=== PATIENT | female | born 1975 | race Caucasian/White ===

== ENCOUNTER 2019-10-31 05:55 | Inpatient (IN) | payer OTHER ==
[~2019-10-31] VITALS: Ht 167.6 cm; Wt 104.3 kg
--- NOTE | 2019-10-31 08:42 | NUR ---
a female 44 years old female admitted to room 118-2 from [facility] left message to for adm orders waiting for returning call back
[2019-10-31] MEDS ORDERED: ASPIRIN 81 MG TAB.CHEW PO SCH (10:00)
[2019-10-31] MEDS ORDERED: PANTOPRAZOLE 40 MG TABLET.DR PO SCH (10:00)
[2019-10-31 10:50] LABS: BASOPHILS # (AUTO) 0.1 /CMM (0.0-0.2); BASOPHILS % (AUTO) 0.7 % (0.0-2.0); EOSINOPHILS % (AUTO) 0.2 % (0.0-6.0); HEMATOCRIT 37 % (33-45); HEMOGLOBIN 12.2 g/dL (11.5-14.8); LYMPHOCYTES # (AUTO) 1.5 /CMM (0.8-4.8); LYMPHOCYTES % (AUTO) 17.1 % (20.0-44.0); MEAN CORPUSCULAR HGB CONC 33 g/dl (31.0-36.0); MEAN CORPUSCULAR VOLUME 84 fL (82-100); MONOCYTES # (AUTO) 0.4 /CMM (0.1-1.30); MONOCYTES % (AUTO) 4.3 % (2.0-12.0); NEUTROPHILS # (AUTO) 6.6 /CMM (1.8-8.9); NEUTROPHILS % (AUTO) 77.7 % (43.0-81.0); PLATELET COUNT (AUTO) 273 /CMM (150-450); RED BLOOD CELL COUNT(AUTO) 4.44 MIL/uL (4.0-5.2); WHITE BLOOD COUNT (AUTO) 8.5 K/uL (4.3-11.0)
[2019-10-31] MEDS ORDERED: IV 1/2NS 1000 ML 1,000 ML IV PRN (11:12)
[2019-10-31 11:29] LABS: ALBUMIN 3.3 g/dL (3.4-5.0); BILIRUBIN,TOTAL 0.3 mg/dL (0.2-1.0); CALCIUM, SERUM 9.1 mg/dL (8.5-10.1); CREATININE 0.7 mg/dL (0.6-1.3); MAGNESIUM 2.1 mg/dL (1.8-2.4); PHOSPHORUS 3.1 mg/dL (2.5-4.9); TOTAL PROTEIN, SERUM 7.2 g/dL (6.4-8.2)
[2019-10-31] MEDS ORDERED: Z GUARD REMEDY 2 OZ OINT TP PRN (11:30)
[2019-10-31] MEDS ORDERED: ZOLPIDEM TARTRATE 5 MG TABLET PO PRN (11:30)
[2019-10-31] MEDS ORDERED: ACETAMINOPHEN 325 MG TABLET PO PRN (11:30)
[2019-10-31] MEDS ORDERED: MAGNESIUM HYDROXIDE 30 ML UDC PO PRN (11:30)
[2019-10-31] MEDS ORDERED: ONDANSETRON HCL/PF 4 MG/2 ML VIAL IVP PRN (11:30)
[2019-10-31] MEDS ORDERED: HYDROCODONE/APAP 5/325MG 1 EACH TABLET PO PRN (11:30)
[2019-10-31] MEDS ORDERED: MAG HYDROX/AL HYDROX/SIMETH 30 ML UDC PO PRN (11:30)
[2019-10-31 12:00] VITALS: BP 121/70
--- NOTE | 2019-10-31 15:23 | NUR ---
RN OPENING NOTES RECEIVED PATIENT A DIRECT ADMIN FROM [facility]. SHE IS A 44 YO FEMALE WHO COMPLAINS OF DIZZINESS AND NAUSEA WITH A FULL FEELING IN HER EARS. SHE IS AOX4, VERBAL, AND AMBULATORY. SHE IS ON RA, TOLERATING WELL, NO SOB OR RESP DISTRESS. EYES ARE PERRLA, LUNGS SOUND CLEAR. SKIN IS INTACT. PT STATES SHE IS A LITTLE BIT NAUSEOUS BUT IT IS BETTER THAN BEFORE. SAFETY MEASURES HAVE BEEN IMPLEMENTED, CALL LIGHT IS WIHTIN REACH, BED IS IN LOWEST AND LOCKED POSITION, SIDE RAILS UP X2, WILL CONTINUE TO MONITOR. MADE AWARE.
[2019-10-31 16:00] VITALS: BP 117/54
--- NOTE | 2019-10-31 18:45 | NUR ---
RN CLOSING NOTE: PATIENT IS CURRENTLY RESTING IN BED. NO ACUTE DISTRESS NOTED/ ACUTE CHANGES NOTED THROUGHOUT THE SHIFT. VSS. PATIENT NEEDS HAVE BEEN MET. SAFETY MEASURES HAVE BEEN IMPLEMENTED, BED IS IN LOWEST AND LOCKED POSITION. SIDE RAILS UP X3. CALL LIGHT WITHIN REACH. PATIENT TO BE DC SOON. WILL HANDOFF REPORT TO ONCOMING RN FOR CONTINUITY OF CARE.
[2019-10-31 19:32] VITALS: BP 125/75
--- NOTE | 2019-10-31 19:33 | NUR ---
RN NOTES PATIENT DISCHARGED IN GOOD AND STABLE CONDITION, VS STABLE, NO COMPLAIN OF PAIN, ON ROOM AIR, AMBULATORY, ALL BELONGINGS GIVEN TO PATIENT, DISCHARGE PAPERS SIGNED, MADE COPIES AND PUT IN CHART
== END 2019-10-31 19:35 | disposition home or self-care (01) | DRG 111 ==
LOC: TELE1 08:28
PROVIDERS: ADMIT Internal Medicine; ATTEND Internal Medicine
DX: H83.09 Labyrinthitis, unspecified ear (principal); E66.9 Obesity, unspecified; Z68.37 Body mass index [BMI] 37.0-37.9, adult
CPT/HCPCS: 36415; 71045-TC; 80053-TC; 83735-TC; 84100-TC; 84484-TC; 85025-TC; 87081-TC; 93307-TC; G0378; J3490